=== PATIENT | female | born 1980 | race Caucasian/White ===

== ENCOUNTER 2020-10-22 16:17 | Outpatient (REF) | payer BC, SELFPAY ==
--- NOTE | 2020-10-22 16:00 | PAPFT_PTH ---
PATIENT: Jane Goodwin LOC: [facility] U#:[id number] AGE/SX: 39/F ROOM: RE10/22/[address]: Traci Arnold DO : 1980 BED: DIS: 10/22/2020 SPEC #: [id number] RECD: 10/22/20 17:51 STATUS: ISABELLE REGrace #: [id number] NICKIE: 10/22/20 16:[address]: Traci Arnold DEPT: [facility] Cytology RECD BY: Cynthia Bills ENTERED: 10/22/20 17:51 SP TYPE: PAPFT EARL DR: Jing Leonard, GERRI Tissues: 1 - CX/ENDOCX FOR PAP SMEARS Procedures: PAP THIN PREP/UVM Screening HPV DNA PROBE Comments: [id number] (CHLAMYDIA/GC)
--- NOTE | 2020-10-22 16:00 | ENDOMET_PTH ---
PATIENT: Jane Goodwin LOC: [facility] U#:[id number] AGE/SX: 39/F ROOM: RE10/22/[address]: Traci Arnold DO : 1980 BED: DIS: 10/22/2020 SPEC #: [id number] RECD: 10/22/20 17:48 STATUS: ISABELLE REQ #: [id number] NICKIE: 10/22/20 16:[address]: Traci Arnold DEPT: Surgical Specimen RECD BY: Cynthia Bills ENTERED: 10/22/20 17:49 SP TYPE: Endomet OT DR: GERRI Aguilar Tissues: 1 - ENDOMETRIUM BX/CAR Procedures: GROSS AND MICRO LEVEL 4 Comments: [id number]
[2020-10-24 14:20] LABS: Chlamydia Result Negative (Negative); GC Result Negative (Negative)
== END 2020-10-22 16:18 | disposition home or self-care (01) ==
LOC: LBN 16:17
PROVIDERS: PCP Nurse Practitioner Family; Visit Provider Obstetrics & Gynecology
DX: N93.8 Other specified abnormal uterine and vaginal bleeding (principal); N85.8 Other specified noninflammatory disorders of uterus; Z11.3 Encounter for screening for infections with a predominantly sexual mode of transmission; Z12.4 Encounter for screening for malignant neoplasm of cervix; Z11.51 Encounter for screening for human papillomavirus (HPV)
CPT/HCPCS: 87491; 87591; 88142; 88305; 87624

== ENCOUNTER 2021-04-22 03:37 | Outpatient (CLI) | payer BC, SELFPAY ==
[2021-04-22 11:43] LABS: BUN 17 mg/dL (7-18); CO2 30.4 mmol/L (21.0-32.0); CREATININE 0.8 mg/dL (0.55-1.02); Calcium 9.2 mg/dL (8.5-10.1); Calculated LDL 88 mg/dL (<100); Cholesterol 165 mg/dL (<200); Glucose 88 mg/dL (74-106); HDL Cholesterol 64 mg/dL (40-60); Triglyceride 66 mg/dL (<150)
[2021-04-22 11:47] LABS: Anion Gap 6.6 mmol/L (3-11); Chloride 106 mmol/L (98-107); Potassium 4.8 mmol/L (3.5-5.1); Sodium 143 mmol/L (136-145)
== END 2021-04-22 03:38 | disposition home or self-care (01) ==
LOC: LBO 03:37
PROVIDERS: PCP Nurse Practitioner Family; Visit Provider Nurse Practitioner Family
DX: Z00.00 Encounter for general adult medical examination without abnormal findings (principal)
CPT/HCPCS: 36415; 80048; 80061

== ENCOUNTER → 2022-01-09 02:00 | Outpatient (CLI) | payer BC, SELFPAY ==
--- NOTE | 2022-01-09 08:30 | DI.MAMMO_ITS ---
Exam(s) MAMMO SCREENING EXAM: MAMMO SCREENING CLINICAL HISTORY: screening, Z12.39 TECHNIQUE: Mammograms were interpreted according to the usual protocol including computer analysis w [employer] CAD system, tomosynthesis and C-view imaging. COMPARISON: Mammogram and right breast ultrasound from 2014 FINDINGS: The breasts are composed of heterogeneously dense fibroglandular densities, Breast Density category C . The previously noted circumscribed mass in the upper outer quadrant of the right breast appears sligh tly smaller when compared with the previous exam, now measuring 2.2 x 1.8 by 2.2 cm. It measured 2.7 cm on the prior exam. The previously noted small adjacent lesion is now completely calcified. No s uspicious masses or suspicious microcalcifications are seen. The left breast has a normal appearance . No skin thickening or abnormal axillary lymph nodes are seen. IMPRESSION: BI-RADS category 2-Benign Findings Yearly screening mammography is recommended. Breast Density Category C, heterogeneously Dense. The mammogram demonstrates the patient's breast tissue is dense. Dense breast tissue is very common a nd is not abnormal but dense breast tissue can make it harder to find cancer on a mammogram. Also, de nse breast tissue may increase breast cancer risk. This information about the result of the mammogram report was provided to the patient to raise their awareness. Use this report when you speak with the patient about their risks for breast cancer, which includes their family history. At that time, you may recommend additional screening tests (Ultrasound or MRI) as they might be useful based on their r isk. A negative radiographic report should not delay biopsy if a dominant or clinically suspicious mass is present. Up to ten percent of cancers are not identified on mammography. A negative report may reinforce clinical impression. Adenosis and dense breasts may obscure an underlying neoplasm. False positive reports average 6 to 10%.
== END ==
PROVIDERS: PCP Nurse Practitioner Family; Visit Provider Nurse Practitioner
DX: Z12.31 Encounter for screening mammogram for malignant neoplasm of breast (principal); N60.81 Other benign mammary dysplasias of right breast; N63.11 Unspecified lump in the right breast, upper outer quadrant
CPT/HCPCS: 77063; 77067

== ENCOUNTER 2022-12-19 02:10 | Outpatient (CLI) | payer BC, SELFPAY ==
[2022-12-19 15:25] LABS: ALT 25 U/L (14-59); AST 23 U/L (15-37); Albumin 3.6 g/dL (3.4-5.0); Alkaline Phosphatase 64 U/L (46-116); Anion Gap 6.7 mmol/L (3-11); BUN 19 mg/dL (7-18); Bilirubin, Total 0.5 mg/dL (0.2-1.0); CO2 30.3 mmol/L (21.0-32.0); Chloride 104 mmol/L (98-107); Estimated GFR 71.69 (mL/min/1.73m2); Glucose 92 mg/dL (74-106); Potassium 3.9 mmol/L (3.5-5.1); Sodium 141 mmol/L (136-145); Total Protein 7.1 g/dL (6.4-8.2)
== END 2022-12-19 02:11 | disposition home or self-care (01) ==
PROVIDERS: PCP Nurse Practitioner Family; Visit Provider Nurse Practitioner Family
DX: B35.1 Tinea unguium (principal)
CPT/HCPCS: 36415; 80053

== ENCOUNTER → 2023-01-13 02:12 | Outpatient (CLI) | payer BC, SELFPAY ==
--- NOTE | 2023-01-13 06:45 | DI.MAMMO_ITS ---
Exam(s) MAMMO SCREENING EXAM: MAMMO SCREENING CLINICAL HISTORY: screening,Z12.39 TECHNIQUE: Bilateral full field digital CC and MLO mammographic images were obtained with 3D tomosyn thesis and utilizing computer aided detection (CAD). COMPARISON: Available for comparison. FINDINGS: Masses/Architectural Distortion: There is a well-circumscribed mass in the upper outer quadrant of th e right breast which measures 2.2 cm. This is unchanged compared to the prior examination. This has remained stable since the earliest ultrasound dated 11/28/2014. No new or suspicious masses are seen . No areas of architectural distortion are present. Microcalcifications: No suspicious pleomorphic-type are seen. There is a stable coarse calcifications seen in the upper outer quadrant of the right breast. Skin Thickening/Nipple Retraction: None. IMPRESSION: 1. No significant interval change with no specific features of malignancy noted. 2. Unless there is more urgent need, screening mammography is recommended, as per [place] [employer] guidelines. BI-RADS Category 2 - Benign Findings Breast Density - Category C - Heterogeneously dense Breast density category C or D implies that the patient has dense breast tissue. Dense breast tissue is very common and is not abnormal but dense breast tissue can make it harder to find cancer on a ma mmogram. Also, dense breast tissue may increase their breast cancer risk. This information about the result of the mammogram report was provided to the patient to raise their awareness. Use this report when you speak with the patient about their risks for breast cancer, which includes their family hist ory. At that time, you may recommend for more screening tests (Ultrasound or MRI) as they might be us eful based on their risk. A negative radiographic report should not delay biopsy if a dominant or clinically suspicious mass is present. Up to ten percent of cancers are not identified on mammography. A negative report may reinforce clinical impression. Adenosis and dense breasts may obscure an underlying neoplasm. False positive reports average 6 to 10%. Patient will receive a letter notifying them of these results.
== END ==
PROVIDERS: PCP Nurse Practitioner Family; Visit Provider Nurse Practitioner Family
DX: Z12.31 Encounter for screening mammogram for malignant neoplasm of breast (principal)
CPT/HCPCS: 77063; 77067

== ENCOUNTER 2023-12-29 01:29 | Outpatient (CLI) | payer BC, SELFPAY ==
[2023-12-29 13:05] LABS: Abs Immature Grans 0.02 10^3/uL (0.0-0.06); Absolute Basophil Count 0.05 10^3/uL (0.0-0.2); Absolute Eosinophil Count 0.18 10^3/uL (0.0-0.7); Absolute Lymphocyte Count 1.69 10^3/uL (1.2-3.4); Absolute Monocyte Count 0.38 10^3/uL (0.1-0.8); Absolute Neutrophil Count 3.51 10^3/uL (1.2-6.7); Basophils % 0.9 %; Eosinophils % 3.1 %; HCT 39.2 % (36.0-46.0); HGB 13.3 g/dL (11.2-15.7); Immature Grans % 0.3 %; MCH 29.8 pg (27.0-33.0); MCHC 33.9 % (32.0-36.0); MCV 88 fL (80-95); MPV 9.7 fL (8.0-11.0); Monocytes % 6.5 %; Neutrophils % 60.2 %; Platelet Count 195 10^3/uL (130-400); RBC 4.47 10^6/uL (3.93-5.22); RDW 12.8 % (11.7-14.6); RDW-SD 40.6 fL; WBC 5.83 10^3/uL (4.4-10.8)
[2023-12-29 13:20] LABS: Hemoglobin A1C 5.4 % (<5.7)
[2023-12-29 13:39] LABS: ALT 26 U/L (14-59); AST 22 U/L (15-37); Albumin 3.9 g/dL (3.4-5.0); Alkaline Phosphatase 67 U/L (46-116); Anion Gap 9.4 mmol/L (3-11); BUN 11 mg/dL (7-18); Bilirubin, Total 0.67 mg/dL (0.2-1.0); CO2 28.6 mmol/L (21.0-32.0); CREATININE 1.1 mg/dL (0.55-1.02); Calcium 9.6 mg/dL (8.5-10.1); Calculated LDL 68 mg/dL (<100); Chloride 104 mmol/L (98-107); Cholesterol 155 mg/dL (<200); Estimated GFR 63.54 (mL/min/1.73m2); Glucose 51 mg/dL (74-106); HDL Cholesterol 78 mg/dL (40-60); Potassium 3.4 mmol/L (3.5-5.1); Sodium 142 mmol/L (136-145); Total Protein 7.6 g/dL (6.4-8.2); Triglyceride 48 mg/dL (<150)
[2023-12-30 09:29] LABS: HIV-1/2 Ag & Ab Screen Negative (Negative)
[2023-12-30 09:37] LABS: Hepatitis C Ab w Rflx HCV PCR Negative (Negative)
[2023-12-30 10:04] LABS: HBs Antibody, Quant 10.8 mIU/mL (See Note); Hep B Surface Ab Positive (See Note); Hepatitis B Core Antibody Negative (Negative); Hepatitis B Surface Antigen Negative (Negative)
== END 2023-12-29 01:30 | disposition home or self-care (01) ==
PROVIDERS: PCP Nurse Practitioner Family; Visit Provider Nurse Practitioner Family
DX: Z00.00 Encounter for general adult medical examination without abnormal findings (principal); Z11.4 Encounter for screening for human immunodeficiency virus [HIV]; B35.1 Tinea unguium; Z11.59 Encounter for screening for other viral diseases
CPT/HCPCS: 36415; 80053; 80061; 86704; 86706; 86803; 87340; 87389; 83036; 84443; 85025

== ENCOUNTER 2024-01-19 01:53 | Outpatient (CLI) | payer BC, SELFPAY ==
--- NOTE | 2024-01-19 06:30 | DI.MAMMO_ITS ---
Exam(s) MAMMO SCREENING EXAM: MAMMO SCREENING CLINICAL HISTORY: screening,z12.39 TECHNIQUE: Bilateral full field digital CC and MLO mammographic images were obtained with 3D tomosyn thesis and utilizing computer aided detection (CAD). COMPARISON: Available for comparison. FINDINGS: Masses/Architectural Distortion: The well-circumscribed nodule in the upper outer quadrant of the rig ht breast is unchanged. It measures 2.3 cm. This compares to 2.2 on the prior examination. No new nodules are identified. No areas of architectural distortion are present. Microcalcifications: No suspicious pleomorphic-type are seen. Skin Thickening/Nipple Retraction: None. IMPRESSION: 1. No significant interval change with no specific features of malignancy noted. 2. Unless there is more urgent need, screening mammography is recommended, as per [place] [employer] guidelines. BI-RADS Category 2 - Benign Findings Breast Density - Category C - Heterogeneously dense Breast density category C or D implies that the patient has dense breast tissue. Dense breast tissue is very common and is not abnormal but dense breast tissue can make it harder to find cancer on a ma mmogram. Also, dense breast tissue may increase their breast cancer risk. This information about the result of the mammogram report was provided to the patient to raise their awareness. Use this report when you speak with the patient about their risks for breast cancer, which includes their family hist ory. At that time, you may recommend for more screening tests (Ultrasound or MRI) as they might be us eful based on their risk. A negative radiographic report should not delay biopsy if a dominant or clinically suspicious mass is present. Up to ten percent of cancers are not identified on mammography. A negative report may reinforce clinical impression. Adenosis and dense breasts may obscure an underlying neoplasm. False positive reports average 6 to 10%. Patient will receive a letter notifying them of these results.
== END 2024-01-19 02:13 ==
LOC: DI 01:53
PROVIDERS: PCP Nurse Practitioner Family; Visit Provider Nurse Practitioner Family
DX: Z12.31 Encounter for screening mammogram for malignant neoplasm of breast (principal)
CPT/HCPCS: 77063; 77067

== ENCOUNTER 2024-03-30 03:28 | Outpatient (CLI) | payer BC, SELFPAY ==
[2024-03-30 15:37] LABS: ALT 27 U/L (14-59); AST 25 U/L (15-37); Albumin 3.8 g/dL (3.4-5.0); Alkaline Phosphatase 74 U/L (46-116); Anion Gap 7.6 mmol/L (3-11); BUN 20 mg/dL (7-18); Bilirubin, Total 0.47 mg/dL (0.2-1.0); CO2 28.4 mmol/L (21.0-32.0); CREATININE 1.1 mg/dL (0.55-1.02); Calcium 9.2 mg/dL (8.5-10.1); Chloride 105 mmol/L (98-107); Estimated GFR 63.54 (mL/min/1.73m2); Glucose 83 mg/dL (74-106); Potassium 4.1 mmol/L (3.5-5.1); Sodium 141 mmol/L (136-145); Total Protein 7.5 g/dL (6.4-8.2)
== END 2024-03-30 03:29 | disposition home or self-care (01) ==
LOC: LBO 03:30
PROVIDERS: PCP Nurse Practitioner Family; Visit Provider Nurse Practitioner Family
DX: B35.1 Tinea unguium (principal)
CPT/HCPCS: 36415; 80053

== ENCOUNTER 2025-01-23 02:28 | Outpatient (CLI) | payer BC, SELFPAY ==
--- NOTE | 2025-01-23 06:30 | DI.MAMMO_ITS ---
Exam(s) MAMMO SCREENING EXAM: MAMMO SCREENING CLINICAL HISTORY: screening,z12.39. TECHNIQUE: Bilateral full field digital CC and MLO mammographic images were obtained with 3D tomosynthesis and utilizing computer aided detection (CAD). COMPARISON: Prior mammograms were reviewed. FINDINGS: No new left breast findings. In the right breast a calcified fibroadenoma in the upper outer quadrant is again noted. There is also an oval 1.9 x 2.0 cm nodule again noted which has been shown to be solid on prior ultrasound examination of 2014, and most probably a fibroadenoma. There are no new spiculated masses nor new malignant appearing microcalcification groups. There is no significant architectural distortion nor skin thickening-retraction. IMPRESSION: 1. No radiographic evidence of malignancy in the left breast. 2. Continued stable size of the 2 cm well-defined nodule in the upper-outer quadrant of the right breast. This was shown to be solid on ultrasound examination of November 2014 and probably a fibroadenoma. BI-RADS Category 2 - Benign Findings Breast Density - Category C - The breast are heterogeneously dense, which may obscure small masses. Breast density Category C or D implies that the patient has dense breast tissue. Dense breast tissue can make it harder to find cancer on a mammogram. Dense breast tissue is also associated with an increased risk of breast cancer. This information about the result of the mammogram report was provided to the patient to raise their awareness. Use this report when you speak with the patient about their risks for breast cancer, which includes their family history. At that time, you may recommend additional screening tests (Ultrasound or MRI) as these tests may add significant information. A negative radiographic report should not delay biopsy if a dominant or clinically suspicious mass is present. Up to ten percent of cancers are not identified on mammography. A negative report may reinforce clinical impression. Adenosis and dense breasts may obscure an underlying neoplasm. False positive reports average 6 to 10%. Patient will receive a letter notifying them of these results.
== END 2025-01-23 02:48 ==
PROVIDERS: PCP Nurse Practitioner Family; Visit Provider Nurse Practitioner Family
DX: Z12.31 Encounter for screening mammogram for malignant neoplasm of breast (principal); R92.333 Mammographic heterogeneous density, bilateral breasts
CPT/HCPCS: 77063; 77067

== ENCOUNTER 2025-01-26 18:13 | Outpatient (REF) | payer BC, SELFPAY ==
[2025-01-31 13:37] LABS: Helicobacter pylori Ag, Feces Negative (Negative)
== END 2025-01-26 18:14 | disposition home or self-care (01) ==
LOC: LBN 18:13
PROVIDERS: PCP Nurse Practitioner Family; Visit Provider Nurse Practitioner Family
DX: K21.9 Gastro-esophageal reflux disease without esophagitis (principal)
CPT/HCPCS: 87338

== ENCOUNTER 2025-04-20 10:05 | Day surgery (SDC) | payer BC, SELFPAY ==
--- NOTE | 2025-04-19 17:50 | W.ANESPRE ---
General Info Date of Service Date Performed: 04/20/25 Height: 5 ft 7 in Weight: 69.853 kg Body Mass Index (BMI): 24.1 Surgical Procedure: Operation Date: 04/20/25 11:35 Proposed Procedure Side Surgeon geeta Cordero MD Meds Allergies and Home Medications Allergies Allergy/AdvReac Type Severity Reaction Status Date / Time No Known Allergies Allergy Verified 04/20/25 10:25 Home Medication Medication Instructions Recorded levonorgestrel (Mirena) 1 device intrauterine ONCE 12/18/23 bupropion HCl 300 mg 24 hr tablet, 300 mg PO QAM #90 tabs 12/05/24 extended release (Wellbutrin XL) bisacodyl 5 mg tablet,delayed 5 mg PO ONCE #4 tabs 03/30/25 release (Dulcolax (bisacodyl)) polyethylene glycol 3350 17 17 g PO ONCE #238 grams 03/30/25 gram/dose oral powder omeprazole 20 mg capsule,delayed 20 mg PO DAILY #90 caps 03/31/25 release Current Visit Medications: Current Medications Generic Name Dose Route Start Last Admin Trade Name Freq PRN Reason Stop Dose Admin Ringer's Solution 1,000 mls @ 80 mls/hr 04/20/25 06:00 IV 04/20/25 23:59 INFUSION LINO IV Miscellaneous Supplies 1 each 04/20/25 06:00 Iv Access IV 04/20/25 23:59 DIRECTED LINO Sodium Biphosphate/Sodium Phosphate 133 ml 04/20/25 06:00 Na Phosphate Enema-Adult 133 Ml Btl ID 04/20/25 23:59 DIRECTED PRN Sodium Chloride 0 ml 04/20/25 06:00 Normal Saline Flush 10 Ml Syr IV 04/20/25 23:59 PRN PRN Sodium Chloride 0 ml 04/20/25 06:00 Normal Saline 10 Ml Vial IJ 04/20/25 23:59 DIRECTED PRN Sterile Water 0 ml 04/20/25 06:00 Water,Injection,Sterile 10 Ml Vial IJ 04/20/25 23:59 DIRECTED PRN PFSH Active Problems Active Problems: Problem Status Onset Code Globus sensation Acute R09.A2 GERD (gastroesophageal reflux disease) Chronic K21.9 Bilateral bunions Acute M21.611, M21.612 Generalized anxiety disorder Chronic F41.1 IUD surveillance Chronic Z30.431 Onychomycosis Chronic B35.1 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 Surgical History Surgical History History of surgery on arm age 7 No significant past surgical history Tobacco Smoking/Tobacco Use Status: Former Tobacco Use Passive smoking exposure: No Second hand exposure: No Alcohol Alcohol Intake: current Alcohol intake frequency: a few times a week Alcohol type: beer, wine and hard liquor Substance Use Substance use: Rarely Substance use type: marijuana Vital Signs and Lab Results Vital Signs Most Recent Vital Signs in EMR: Temp Pulse Resp BP Pulse Ox 36.4 C L 74 12 109/72 100 04/20/25 10:26 04/20/25 10:26 04/20/25 10:26 04/20/25 10:26 04/20/25 10:26 Anesthesia Assessment and Plan Anesthesia History Personal History: No History of Anesthesia Complications Family History: No Family History of Anesthesia Complications Exercise Tolerance Exercise Tolerance: Metabolic Equivalents>4 Pertinent Negatives Pertinent Negatives: No Major Cardiovascular Symptoms or Complaints, No Major Pulmonary Symptoms or Complaints and No History of CVA/TIA Cardiac & Pulmonary Exam Cardiac Exam: Normal S1/S2 Heart Sounds Pulmonary Exam: Clear Bilateral Breath Sounds Implantable Cardiac Device Does patient have a Pacemaker or an ICD?: No Airway Exam Known Difficult Airway: No Mallampati Class: 1 Mouth Opening: Normal (> 3cm) Thyromental Distance: Greater than 3 cm Neck Range of Motion: Full ROM Neck Circumference: Normal Teeth Condition: Normal Dentition ASA Classification ASA Score: ASA 1 Emergency Case?: No NPO Status NPO Status: NPO Clears >2 hours, Solids >8 hours Status Status: Not Relevant due to Medical History Anesthesia Plan Resuscitation Status: Full Code Anesthesia Technique: General Anesthesia Airway Planned: Natural Airway Monitors Used: Standard Monitors Preoperative Comments:: Jane is a 44yr old female who presents today to f/u on GERD. Started on omeprazole 20mg daily for heartburn and globus sensation about a month ago. States since starting, the heartburn has resolved which she is very thankful for. The globus sensation is not happening daily but when it does, it is bothersome and can be difficult to swallow. States it hasn't happened so far this week though. H. pylori stool test prior to starting PPI negative. Other family members have GERD, dad has barretts esophagus.
[2025-04-20 10:26] VITALS: BP 109/72; PULSE 74; RESP 12; TEMP 36.4; O2SAT 100
[2025-04-20 10:36] VITALS: BMI 24.1
[2025-04-20] MEDS: Lactated Ringers 1,000 ML 80 ML IV (10:40)
--- NOTE | 2025-04-20 11:31 | W.PM.DSUDISC ---
Date of service: 04/20/25 Discharge Plan Disposition Patient Disposition: Home Condition: Stable Discharge Details Reason For Visit: screening colonoscopy Attending Provider: Minal Cordero Primary Care Provider: Jing Leonard Home Meds and New Rx's Prescriptions: Continued Mirena 21 mcg/24 hr (8 yrs) 52 mg intrauterine device 1 device intrauterine ONCE bupropion HCl [Wellbutrin XL] 300 mg tablet extended release 24 hr 300 mg PO QAM Qty: 90 3RF omeprazole 20 mg capsule,delayed release(DR/EC) 20 mg PO DAILY Qty: 90 1RF Discontinued bisacodyl [Dulcolax (bisacodyl)] 5 mg tablet,delayed release (DR/EC) 5 mg PO ONCE Qty: 4 0RF Rx Instructions: Take per colonoscopy instructions provided by ordering providers office polyethylene glycol 3350 17 gram/dose powder 17 g PO ONCE Qty: 238 0RF Rx Instructions: Take per colonoscopy instructions provided by ordering providers office Discharge Instructions Additional Instructions: Normal colonoscopy. Zero polyps. Next screening colonoscopy will be due in 10 years. Stand Alone Forms: Anesthesia Discharge Inst., Colonoscopy Post Instructions, Michael Edwards ([facility]), Portal Information Activity:: Activity as Tolerated Diet:: As Tolerated Discharge Orders Discharge Orders: Discharge Order (Routine); Ordered 04/20/25 Ordered By: Minal Cordero DS: Diagnosis Discharge Diagnosis (1) Encounter for screening colonoscopy for [id number] patient: Status: Acute
--- NOTE | 2025-04-20 11:33 | W.COLOREPORT ---
Date of service: 04/20/25 Time of Service: 11:33 Colonoscopy Report Pre-op diagnosis general: Screening for colorectal cancer Post-op diagnosis procedure note: same Procedure: Colonoscopy Surgeon: Minal Cordero Anesthesia Type: General:No Airway Estimated blood loss (mL): 0 Pathology: none sent Complications: None Indications: screening for colorectal cancer Prep: Miralax/Dulcolax (excellent) Procedure Description: Informed consent was obtained and the patient was taken to the procedure area. The patient was placed in left lateral decubitus position on the procedure table. Timeout was performed. Anesthesia was induced. A lubricated colonoscope was inserted through the anus and passed to the cecum. The cecum was identified by the ileocecal valve and the appendiceal orifice. The scope was then slowly withdrawn and the colonic and rectal mucosa examined. There are no colon or rectal mass lesions, polyps, AVMs. There is no inflammatory change. No diverticulosis was seen. The scope was retroflexed in the anorectal junction examined. Uncomplicated internal hemorrhoids present. rectum with one area photographed that looked like a polyp but washed away with irrigation and was confirmed to be food matter. Assessment and plan: Screening for colorectal cancer. Normal colonoscopy. Next screening colonoscopy will be due in 10 years.
[2025-04-20 11:52] VITALS: BP 101/65; PULSE 87; RESP 14; TEMP 36.2; O2SAT 98
--- NOTE | 2025-04-20 11:55 | W.ANESPOSTOP ---
Postoperative Evaluation Date, Time and Location Date Performed: 04/20/25 Time Performed: 11:55 Patient Location: Day Surgery Unit Vital Signs Most Recent Imported Vital Signs: Most Recent Vital Signs Temp Pulse Resp BP Pulse Ox 36.2 C L 87 14 101/65 98 04/20/25 11:52 04/20/25 11:52 04/20/25 11:52 04/20/25 11:52 04/20/25 11:52 Pain Score Most Recent Pain Score: Most Recent Pain Score Pain Level 0 04/20/25 11:52 Assessment Mental Status: Awake (Alert & Oriented to Patient Baseline) Airway and Respiratory Function: Patent airway with normal (patient baseline) respiratory exam Cardiovascular Function: Hemodynamically Stable Hydration Status: Adequately Hydrated Nausea & Vomiting: No Nausea or Vomiting Pain: Pt. Denies Any Pain Peripheral Nerve Block: Patient did not receive a nerve block
[2025-04-20 12:21] VITALS: BP 107/71; PULSE 61; RESP 14; TEMP 36.2; O2SAT 100
== END 2025-04-20 12:30 | disposition home or self-care (01) ==
PROVIDERS: PCP Nurse Practitioner Family; Visit Provider Surgery
PROC: 0DJD8ZZ Inspection of Lower Intestinal Tract, Via Natural or Artificial Opening Endoscopic (ICD-10-PCS; CPT 45378; principal; 2025-04-20 11:30)
DX: Z12.11 Encounter for screening for malignant neoplasm of colon (principal)
CPT/HCPCS: 45378; 81025; J2003; J2704